=== PATIENT | female | born 1975 | race Caucasian/White ===

== ENCOUNTER 2019-10-07 11:55 | Emergency (ER) | payer OTHER ==
[2019-10-07 12:14] VITALS: BP 161/83; PULSE 84; TEMP 98.8; BMI 19.8
[2019-10-07] MEDS ORDERED: SODIUM CHLORIDE 1,000 ML IV STA (12:53)
[2019-10-07] MEDS ORDERED: METOCLOPRAMIDE HCL INJECTION 10 MG/2 ML VIAL IVPB ONE (12:53)
--- NOTE | 2019-10-07 13:11 | PDOC ---
History of Present Illness - General History Source: Patient Exam Limitations: Clinical Condition - History of Present Illness Initial Comments: 10/07/19 13:09 Patient with no significant past medical history present with complaint of 1 month history of periumbilical pain which she described as aching pain which has been constant for a month now. Patient report has been taking [id number]-[id number] medication for pain for a month at which has not been helping. Patient reported calling her PCPs office for follow-up and was advised to come to the ED. Re ported last bowel movement 3 days ago which was hard. Denies nausea, vomiting, diarrhea, fever, chills, shortness of breath, urinary frequency, dysuria or any urinary symptoms. Denies history of abdominal surgeries. Denies any other symptoms Is this a multiple visit Asthma Patient?: No Timing/Duration: other (1 month) Severity: moderate Associated Symptoms: denies: fever/chills, malaise, nausea/vomiting, shortness of breath <Juan Maddox - Last Filed: 10/07/19 16:53> <Yoni Montelongo - Last Filed: 10/07/19 18:09> - General Chief Complaint: Pain, Acute Stated Complaint: STOMACH PAIN Time Seen by Provider: 10/07/19 12:33 Past History - Medical History COPD: No - Reproductive History Is Patient Now?: No - Immunization History Immunization Up to Date: No - Psycho-Social/Smoking History Smoking History: Never smoked - Substance Abuse Hx (Audit-C & DAST Scrn) How often the patient has a drink containing alcohol: Never Score: In Men: 4 or > Positive; In Women: 3 or > Positive: 0 Screen Result (Pos requires Nsg. Audit-10AR): Negative In the last yr the pt used illegal drug/Rx for NonMed reason: No Score: Yes response is considered Positive: 0 Screen Result (Positive result requires Nsg. DAST-10): Negative <Juan Maddox - Last Filed: 10/07/19 16:53> <Yoni Montelongo - Last Filed: 10/07/19 18:09> - Medical History Allergies/Adverse Reactions: Allergies Allergy/AdvReac Type Severity Reaction Status Date / Time No Known Allergies Allergy Verified 10/07/19 12:12 Home Medications: Ambulatory Orders Mag Hydrox/Aluminum Hyd/Simeth [Maalox Advanced Suspension] 30 ml PO Q8H PRN #200 ml 10/07/19 Polyethylene Glycol 3350 [Miralax (For Bowel Prep) -] 17 gm PO DAILY #1 bottle 10/07/19 Review of Systems - Review of Systems Able to Perform ROS?: Yes Is the patient limited Swedish proficient: No Constitutional: No: Chills, Fever, Malaise HEENTM: No: Symptoms Reported, See HPI, Eye Pain, Blurred Vision, Tearing, Recent change in vision, Double Vision, Cataracts, Ear Pain, Ocular Prothesis, Ear Discharge, Nose Pain, Nose Congestion, Tinnitus, Nose Bleeding, Hearing Loss, Throat Pain, Throat Swelling, Mouth Pain, Dental Problems, Difficulty Swallowing, Mouth Swelling, Other Respiratory: No: Symptoms reported, See HPI, Cough, Orthopnea, Shortness of Breath, SOB with Exertion, SOB at Rest, Stridor, Wheezing, Productive cough, Hemoptysis, Other ABD/GI: Yes: Symptoms Reported, See HPI, Constipated, Abdominal cramping (periumbilical). No: Abd. Pain w/ defecation, Blood Streaked Bowels, Diarrhea, Difficulty Swallowing, Nausea, Poor Appetite, Poor Fluid Intake, Rectal Bleeding, Vomiting, Indigestion Musculoskeletal: No: Joint Stiffness Integumentary: No: Symptoms Reported Neurological: No: Symptoms reported, Headache, Dizziness All Other Systems: Reviewed and Negative <Juan Maddox - Last Filed: 10/07/19 16:53> *Physical Exam - Vital Signs Last Vital Signs Temp Pulse Resp BP Pulse Ox 98.8 F 84 20 161/83 100 10/07/19 12:12 10/07/19 12:12 10/07/19 12:12 10/07/19 12:12 10/07/19 12:12 - Physical Exam 10/07/19 13:52 GENERAL: Well developed, well nourished. Awake and alert. No acute distress. HEENT: Normocephalic, atraumatic. PERRLA, EOMI. No conjunctival pallor. Sclera are non-icteric. Moist mucous membranes. Oropharynx is clear. NECK: Supple. Full ROM. CARDIOVASCULAR: Regular rate and rhythm. No murmurs, rubs, or gallops. Distal pulses are 2+ and symmetric. PULMONARY: No evidence of respiratory distress. Lungs clear to auscultation bilaterally. No wheezing, rales or rhonchi. ABDOMINAL: Soft. Mild periumbilical tenderness. Non-distended. No rebound or guarding. Negative Villegas sign. No organomegaly. Diffuse decreased bowel sounds. MUSCULOSKELETAL Normal range of motion at all joints. SKIN: Warm and dry. Normal capillary refill. No rashes. No jaundice. NEUROLOGICAL: Alert, awake, appropriate. Gait is normal without ataxia. PSYCHIATRIC: Cooperative. Good eye contact. Appropriate mood General Appearance: Yes: Nourished, Appropriately Dressed. No: Apparent Distress <Juan Maddox Vinnie - Last Filed: 10/07/19 16:53> - Vital Signs Last Vital Signs Temp Pulse Resp BP Pulse Ox 98.8 F 84 20 161/83 100 10/07/19 12:12 10/07/19 12:12 10/07/19 12:12 10/07/19 12:12 10/07/19 12:12 <Yoni Montelongo - Last Filed: 10/07/19 18:09> ED Treatment Course - LABORATORY CBC & Chemistry Diagram: 10/07/19 13:07 10/07/19 13:07 - RADIOLOGY Radiology Studies Ordered: Category Date Time Status ABDOMEN FLAT & UPRIGHT [RAD] Stat Radiology 10/07/19 12:53 Ordered <VarshaJuan Vinnie - Last Filed: 10/07/19 16:53> - LABORATORY CBC & Chemistry Diagram: 10/07/19 13:07 10/07/19 13:07 - ADDITIONAL ORDERS Additional order review: Laboratory Results 10/07/19 13:07 Sodium 135 L Potassium 4.9 Chloride 100 Carbon Dioxide 29 Anion Gap 6 L BUN 14.8 Creatinine 0.8 Est GFR (CKD-EPI)AfAm 103.19 Est GFR (CKD-EPI)NonAf 89.04 Random Glucose 77 Calcium 9.6 Total Bilirubin 0.5 AST 28 ALT 18 Alkaline Phosphatase 65 Total Protein 10.2 H Albumin 4.8 Lipase 50 L 10/07/19 13:07 RBC 4.65 MCV 91.5 MCHC 32.8 RDW 13.4 MPV 12.2 H Neutrophils % 75.8 Lymphocytes % 15.8 Monocytes % 5.7 Eosinophils % 2.0 Basophils % 0.7 - Medications Given in the ED: ED Medications Discontinued Medications Generic Name Dose Route Start Last Admin Trade Name Freq PRN Reason Stop Dose Admin Sodium Chloride 1,000 mls @ 1,000 mls/hr 10/07/19 12:53 10/07/19 14:30 Normal Saline - IV 10/07/19 13:52 1,000 mls/hr ASDIR STA Administration Famotidine/Sodium Chloride 20 mg in 50 mls @ 100 mls/hr 10/07/19 13:57 08 14:30 Pepcid 20 Mg Premixed Ivpb - IVPB 10/07/19 14:26 100 mls/hr ONCE ONE Administration Metoclopramide HCl 10 mg 10/07/19 12:53 10/07/19 14:30 Reglan Injection - IVPB 10/07/19 12:54 10 mg ONCE ONE Administration <Yoni Montelongo - Last Filed: 10/07/19 18:09> Medical Decision Making - Medical Decision Making 10/07/19 13:55 Patient with no significant past medical history present with complaint of 1 month history of periumbilical pain which she described as aching pain which has been constant for a month now. Patient report has been taking [id number] medication for pain for a month at which has not been helping. Patient reported calling her PCPs office for follow-up and was advised to come to the ED. Reported last bowel movement 3 days ago which was hard. Denies nausea, vomiting, diarrhea, fever, chills, shortness of breath, urinary frequency, dysuria or any urinary symptoms. Denies history of abdominal surgeries. Denies any other symptoms Exam significant for mild periumbilical subjective tenderness without guarding or rebound. Patient in no acute distress. Normal cardio and lung exam. CVA tenderness. Negative Villegas sign. Patient symptoms likely abdominal pain from constipation versus less likely cholecystitis or appendicitis. Given benign abdominal exam, will do KUB x-ray to evaluate for constipation or obstruction. Will do basic blood work CBC, chemistry lab and lipase lab to rule out other etiology of patient's pain. Will consider abdominal CT based on lab result. IV hydration 1 L normal saline and Pepcid 20 mg IV ordered for abdominal discomfort 10/07/19 15:33 CBC and chemistry lab unremarkable. No abdominal tenderness on exam now. Abdominal x-ray shows moderate stool with bowel gas which is likely etiology of patient's pain. Patient stable for discharge on MiraLAX daily for 7 days to help with constipation and simethicone with advised to increase fluid and fiber intake to help with constipation with GI follow-up. Plan discussed with patient patient agrees with treatment plan. Patient stable for discharge <Juan Maddox - Last Filed: 10/07/19 16:53> - Medical Decision Making I reviewed the case of the mid-level practitioner and was available for consultation while in the emergency department 10/07/19 18:09 <Yoni Montelongo - Last Filed: 10/07/19 18:09> Discharge - Discharge Information Problems reviewed: Yes - Admission No <Juan Maddox - Last Filed: 10/07/19 16:53> <Yoni Montelongo - Last Filed: 10/07/19 18:09> - Discharge Information Clinical Impression/Diagnosis: Constipation Qualifiers: Constipation type: unspecified constipation type Qualified Code(s): K59.00 - Constipation, unspecified Abdominal pain Qualifiers: Abdominal location: periumbilical Qualified Code(s): R10.33 - Periumbilical pain Condition: Improved Disposition: HOME - Additional Discharge Information Prescriptions: Mag Hydrox/Aluminum Hyd/Simeth [Maalox Advanced Suspension] 30 ml PO Q8H PRN #200 ml PRN Reason: abdominal discomfort Polyethylene Glycol 3350 [Miralax (For Bowel Prep) -] 17 gm PO DAILY #1 bottle - Follow up/Referral Referrals: Rafael Antoine DO [Staff Physician] - Ovidio Schaffer MD [Staff Physician] - - Patient Discharge Instructions Patient Printed Discharge Instructions: Increased Dietary Fiber May Improve Constipation Conditions With Pelvic Osmany, DI for Constipation Additional Instructions: Your blood work is normal. Abdominal x-ray shows moderate stool in your colon which is likely the cause of your pain. X-ray shows constipation. Take prescribed medication as prescribed for constipation. Increase fluid and fiber intake to help with constipation. Follow-up referred GI Doctor if no improvement in 4 days
[2019-10-07] MEDS ORDERED: FAMOTIDINE 20 MG/50 ML IVPB 20 MG/50 ML MG IVPB ONE (13:57)
[2019-10-07] MEDS ORDERED: METOCLOPRAMIDE HCL INJECTION 10 MG/2 ML VIAL ONE (14:10)
[2019-10-07 15:05] LABS: BASO % 0.7 % (0-2.0); HEMATOCRIT 42.5 % (32.4-45.2); HEMOGLOBIN 13.9 GM/dL (10.7-15.3); LYMPH % 15.8 % (8-40); MCHC 32.8 g/dl (32.0-36.0); MEAN CELL VOLUME 91.5 fl (80-96); MEAN PLT VOLUME 12.2 fl (7.5-11.1); MONO % 5.7 % (3.8-10.2); NEUT % 75.8 % (42.8-82.8); PLATELET COUNT 177 K/MM3 (134-434); RBC 4.65 M/mm3 (3.60-5.2); RDW 13.4 % (11.6-15.6); WHITE BLOOD COUNT 9.7 K/mm3 (4.0-10.0)
[2019-10-07 15:25] LABS: ALBUMIN 4.8 g/dl (3.4-5.0); BILIRUBIN,TOTAL 0.5 mg/dL (0.2-1); BLOOD UREA NITROGEN 14.8 mg/dL (7-18); CALCIUM 9.6 mg/dL (8.5-10.1); CREATININE 0.8 mg/dL (0.55-1.3); POTASSIUM 4.9 mmol/L (3.5-5.1); TOT PROT 10.2 g/dl (6.4-8.2)
== END 2019-10-07 15:49 | disposition home or self-care (01) ==
LOC: JER 11:55 → EDBD 11:55 → JER 15:49
PROC: 3E033GC Introduction of Other Therapeutic Substance into Peripheral Vein, Percutaneous Approach (ICD-10-PCS; principal; 2019-10-07)
PROC: 3E0337Z Introduction of Electrolytic and Water Balance Substance into Peripheral Vein, Percutaneous Approach (ICD-10-PCS; 2019-10-07)
DX: K59.00 Constipation, unspecified (principal); R10.33 Periumbilical pain
CPT/HCPCS: 36415; 74019-TC-FY; 80053; 83690; 85025; 99284-25